=== PATIENT | male | born 1960 | race Caucasian/White ===

== ENCOUNTER → 2017-02-22 | Outpatient (CLI) | payer OTHER ==
--- NOTE | 2017-02-22 12:01 | PCVCIMAG ---
APPROVED REPORT Exam: Nuclear Stress Test Indication: CAD , Abnormal EKG Patient Location: Out-Patient Stress Nurse: Tata Collazo RN, Dana Diop RN [place] Tech:Cindi CAMILO McgovernMT Ht: 6 ft 0 in Wt: 240 lbs BSA: 2.30 m2 HR: 82 bpm BP: 141/96 mmHg BMI: 32.5 Rhythm: SR W/ INFERIOR ST & T ABN Medical History Medical History: HTN, Hyperlipidemia, Age Medications: Allopurinol, ASA, Atorvastatin, Nasocort, Metoprolol Allergies: Sulfa Previous Cardiac Procedures: CABG Pretest Chest Pain Characteristics: Chest pain Exercise History: Physically active Stress Test Details Stress Test: Exercise stress testing was performed using a Mariusz protocol. HR Resting HR: 82 bpmMax Heart Rate (APMHR): 165 bpm Max HR Achieved: 171 bpmTarget HR (85% APMHR): 140 bpm % of APMHR: 103 Recovery HR: 106 bpm HR response to stress: Normal HR response to stress BP Resting BP: 141/96 mmHg Max BP: 188/94 mmHg BP response to stress: Normal blood pressure response to stress. ECG Resting ECG: Sinus Rhythm, Inferior ST & T abnormality Stress ECG: Sinus Tachycardia ST Change: Non-ischemic Arrhythmia: VPC's Recovery ECG: Sinus Tachycardia Clinical Reason for Termination: Dyspnea Stress Symptoms: Dyspnea Exercise duration: 11 min 00 sec Exercise capacity: 13.40 METs Overall Exercise Capacity for Age: Good Scale: Active Angina Score: None Symptoms resolved during recovery. NM EXAM: Myocardial Perfusion REST/STRESS Imaging Protocol: Rest Tc-99m/Stress Tc-99m 1 day Resting Data Rest SPECT myocardial perfusion imaging was performed in supine position 45 minutes following the intravenous injection of 10.1 mCi of Tc-99m Sestamibi. Time of rest injection: 0800 Date: 02/22/2017 Administration Route: IV Administration Site: Right Wrist Exercise Stress At peak stress, the patient was injected intravenously with 34.1mCi of Tc-99m Sestamibi. Time of stress injection: 919 Date: 02/22/2017 Gated Stress SPECT was performed 45 minutes after stress injection. The images were gated to evaluate regional wall motion and calculate left ventricular ejection fraction. Study Quality Study: Good Study Data Post stress, the left ventricular ejection was 42%.. SSS: 10 SRS: 4 SDS: 6 TID = 0.96. Perfusion There is a medium area of moderately reduced uptake in the mid and apical segment of the anterior wall which is seen on the stress images as well as the resting images. This area is hypokinetic and is most consistent with myocardial scar. There is a small area of mildly reduced uptake in the basal segment of the inferolateral wall which is seen on the stress images as well as the resting images. This area is hypokinetic and is most consistent with myocardial scar. Wall Motion Mild to moderately decreased left ventricular systolic function. Nuclear Conclusion ECG Findings: negative for ischemia Clinical Findings: negative for ischemia This study reveals infarcts in the mid to apical anterior segment and a small infarct in the basal inferolateral segment. There is mild to moderate segmental LV dysfunction.
== END | disposition home or self-care (01) ==
LOC: PCVCIMAG 07:52
PROVIDERS: ATTEND Internal Medicine Cardiovascular Disease
DX: I25.10 Atherosclerotic heart disease of native coronary artery without angina pectoris (principal); R94.31 Abnormal electrocardiogram [ECG] [EKG]; I10 Essential (primary) hypertension; E78.00 Pure hypercholesterolemia, unspecified; I25.5 Ischemic cardiomyopathy; Z95.1 Presence of aortocoronary bypass graft; Z79.82 Long term (current) use of aspirin; Z79.899 Other long term (current) drug therapy
CPT/HCPCS: 78452; 93017; A9500; G0463

== ENCOUNTER → 2018-02-25 | Outpatient (CLI) | payer BC, OTHER ==
--- NOTE | 2018-02-25 10:08 | PCVCIMAG ---
APPROVED REPORT Study performed: 02/25/2018 09:11:52 EXAM: Comprehensive 2D, Doppler, and color-flow Echocardiogram Patient Location: Echo lab Room #: 2Status: routine BSA: 2.35 HR: 65 bpmBP: 152/100 mmHg Rhythm: NSR Other Information Study Quality: Adequate Risk Factors: Cardiac Risk Factors: HTN, Hyperlipidemia Indications CAD Cardiomyopathy Hypertension/HDD HX: CABG x 5, 2D Dimensions IVSd: 7.88 (7-11mm)LVOT Diam: 24.27 (18-24mm) LVDd: 52.63 mm PWd: 9.99 (7-11mm)Ascending Ao: 34.18 (22-36mm) LVDs: 42.51 (25-40mm) Left Atrium: 39.38 (27-40mm) Aortic Root: 31.33 mm LV Single Plane 4CH: 41.27 % LV Single Plane 2CH: 40.26 % Biplane EF: 40.4 % Volumes Left Atrial Volume (Systole) Single Plane 4CH: 67.46 mLSingle Plane 2CH: 68.55 mL Biplane LA Volume: 70.00 mLLA ESV Index: 30.00 mL/m2 Aortic Valve AoV Peak Julio Cesar.: 0.92 m/s AO Peak Gr.: 3.39 mmHgLVOT Max P.10 mmHg LVOT Max V: 0.72 m/s RADHA Vmax: 3.64 cm2 AI Vmax: 3.70 m/s AI Holmes: 2.17 m/s2 AI PHT: 496.63 ms Mitral Valve E/A Ratio: 1.5 MV Decel. Time: 251.85 ms MV E Max Julio Cesar.: 0.77 m/s MV A Julio Cesar.: 0.53 m/s MV PHT: 73.04 ms IVRT: 128.03 ms TDI E/Lateral E': 12.83E/Medial E': 11.00 Medial E' Julio Cesar.: 0.07 m/s Lateral E' Julio Cesar.: 0.06 m/s Pulmonary Valve PV Peak Julio Cesar.: 0.94 m/sPV Peak Gr.: 3.55 mmHg Pulmonary Vein P Vein S: 0.67 m/sP Vein A: 0.49 m/s P Vein D: 0.52 m/sP Vein A Dur.: 145.3 msec P Vein S/D Ratio: 1.29 Tricuspid Valve TR Peak Julio Cesar.: 2.35 m/s TR Peak Gr.: 22.03 mmHg TV Vmax: 0.53 m/sPA Pressure: 29.00 mmHg Left Ventricle The left ventricle is normal size. Septal, inferior hypokinesis is seen; consistent with old CA. There is normal left ventricular wall thickness. Left ventricular systolic function is mild to moderately decreased. LVEF is 40-45%. Right Ventricle The right ventricle is normal size. The right ventricular systolic function is normal. Atria Left atrium is at the upper limits of normal. The interatrial septum is intact with no evidence for an atrial septal defect. The right atrium size is normal. Aortic Valve Aortic valve is trileaflet. Mild aortic regurgitation. There is no aortic valvular stenosis. Mitral Valve The mitral valve is normal in structure. Mild mitral regurgitation. No evidence of mitral valve stenosis. Tricuspid Valve The tricuspid valve is normal in structure. Trace tricuspid regurgitation. Borderline pulmonary hypertension. Pulmonic Valve The pulmonary valve is normal in structure. There is no pulmonic valvular regurgitation. Great Vessels The aortic root is normal in size. The ascending aorta is normal in size. IVC is normal in size and collapses >50% with inspiration. Pericardium There is no pericardial effusion. There is no pleural effusion. <Conclusion> The left ventricle is normal size. There is normal left ventricular wall thickness. Left ventricular systolic function is mild to moderately decreased. The right ventricle is normal size. Left atrium is at the upper limits of normal. Mild aortic regurgitation. Mild mitral regurgitation. Trace tricuspid regurgitation.
== END | disposition home or self-care (01) ==
LOC: PCVCIMAG 09:29
PROVIDERS: ATTEND Internal Medicine Cardiovascular Disease
DX: I08.0 Rheumatic disorders of both mitral and aortic valves (principal); I25.110 Atherosclerotic heart disease of native coronary artery with unstable angina pectoris; I25.5 Ischemic cardiomyopathy; I10 Essential (primary) hypertension; E78.00 Pure hypercholesterolemia, unspecified; E78.5 Hyperlipidemia, unspecified; R06.00 Dyspnea, unspecified
CPT/HCPCS: 93306

== ENCOUNTER → 2018-08-26 | Outpatient (CLI) | payer BC ==
--- NOTE | 2018-08-26 12:29 | PCVCIMAG ---
APPROVED REPORT Imaging Protocol: Rest Tc-99m/Stress Tc-99m 1 day Study performed: 08/26/2018 09:27:25 Indication: CAD, Ischemic Cardiomyopathy Patient Location: Out-Patient Stress Nurse: Lucretia Drummond RN [place] Tech:David Langford NMGERAB Ht: 6 ft 0 in Wt: 252 lbs BSA: 2.35 m2 HR: 76 bpm BP: 152/82 mmHg BMI: 34.17 Rhythm: Sinus Rhythm, Marked ST Abnormality Medical History Medical History: Age, Hyperlipidemia, HTN Medications: Asa, Atorvastatin, Coreg, Losartan Allergies: Sulfa Previous Cardiac Procedures: CABG Pretest Chest Pain Characteristics: No chest pain Exercise History: Physically active Meds Held (24 hrs): Coreg Resting Data Rest SPECT myocardial perfusion imaging was performed in supine position 45 minutes following the intravenous injection of 10.5 mCi of Tc-99m Sestamibi. Time of rest injection: 0840 Date: 08/26/2018 Administration Route: IV Administration Site: Right AC Pharmacologic Stress Pharmacologic stress test was performed by injecting Regadenoson 0.4 mg IV push over 10-15 seconds immediately followed by the intravenous injection of 34.8 mCi of Tc-99m Sestamibi. Time of stress injection: 1000 Date: 08/26/2018 Administration Route: IV Administration Site: Right AC Gated Stress SPECT was performed 45 minutes after stress injection. The images were gated to evaluate regional wall motion and calculate left ventricular ejection fraction. Stress Test Details Stress Test: Exercise stress testing was performed using a Mariusz protocol. HRMax Heart Rate (APMHR): 163 bpm Resting HR: 76 bpmTarget HR (85% APMHR): 138 bpm Max HR Achieved: 157 bpm % of APMHR: 96 Recovery HR: 93 bpm HR response to stress: Normal HR response to stress BP Resting BP: 152/82 mmHg Max BP: 180/88 mmHg Recovery BP: 168/100 mmHg BP response to stress: Normal blood pressure response to stress. ECG Resting ECG: Sinus Rhythm, Marked ST Abnormality Stress ECG: Sinus Tachycardia, Marked St Abnormality ST Change: Non-ischemic Arrhythmia: PVC's Recovery ECG: Sinus Rhythm, Marked ST Abnormality Clinical Reason for Termination: Maximal effort, Fatigue, Dyspnea Stress Symptoms: Dyspnea Exercise duration: 9 min 30 sec Exercise capacity: 11.90 METs Overall Exercise Capacity for Age: Good Angina Score: None Symptoms resolved during recovery. Study Quality Study: Good Study Data Post stress, the left ventricular ejection was 40%.. SSS: 20 SRS: 17 SDS: 6 TID = 1.02. Perfusion There is a medium area of moderately reduced uptake in the mid and apical segment of the anterior wall which is seen on the stress images as well as the resting images. This area is hypokinetic and is most consistent with myocardial scar. There is a small area of mildly reduced uptake in the basal and mid segment of the lateral wall which is seen on the stress images as well as the resting images. This area is hypokinetic and is most consistent with myocardial scar. Wall Motion Moderately decreased left ventricular systolic function. Nuclear Conclusion ECG Findings: negative for ischemia Clinical Findings: non-diagnostic Nuclear Findings: positive for infarct Exercise Capacity: not assessed Left Ventricular Function: normal This study reveals fixed defects in the mid to apical anterior and mid to basal lateral segments, consistent with infarct. There is moderate segmental LV dysfunction.
== END | disposition home or self-care (01) ==
LOC: PCVCIMAG 08:19
PROVIDERS: ATTEND Internal Medicine Cardiovascular Disease
DX: I25.10 Atherosclerotic heart disease of native coronary artery without angina pectoris (principal); I25.5 Ischemic cardiomyopathy; R06.00 Dyspnea, unspecified
CPT/HCPCS: 78452; 93017; A9500